=== PATIENT | female | born 1995 | race Caucasian/White ===

== ENCOUNTER 2018-06-10 07:15 | Day surgery (SDC) | payer MEDICAID ==
[2018-06-09 11:20] LABS: BASOPHILS 0.4 % (0-2); EOSINOPHILS 1.8 % (0-7); HEMATOCRIT 44.6 % (36.0-48.0); HEMOGLOBIN 15.2 g/dL (12-16); IMMATURE GRANULOCYTES 0.3 % (0-5); LYMPHOCYTES 27.4 % (15-50); MCH 29.4 pg (26.0-34.0); MCHC 34.1 g/dL (31.0-37.0); MCV 86.3 fL (80.0-100.0); MONOCYTES 7.9 % (2-11); NEUTROPHILS 62.2 % (40-80); PLATELET COUNT 215 10x3/uL (130-400); RBC 5.17 10x6/uL (4.00-5.40); RDW 13.6 % (11.5-14.5); WBC 7.2 10x3/uL (4.8-10.8)
[~2018-06-10] VITALS: Ht 170.2 cm; Wt 151.0 kg
--- NOTE | ~2018-06-10 | OP ---
PATIENT NAME: GAGE AWAD MEDICAL RECORD: [id number] :89 LOCATION:[facility] ADMISSION DATE: SURGEON: JONATHON LIRIANO MD DATE OF OPERATION: 06/10/2018 PREOPERATIVE DIAGNOSIS: Undesired fertility. POSTOPERATIVE DIAGNOSIS: Undesired fertility. PROCEDURES: 1. Diagnostic laparoscopy. 2. Bilateral tubal occlusion using Falope Rings. SURGEON: Jonathon Liriano MD PACKAGE DESIGNER: Jon Rodríguez ANESTHESIOLOGIST: Dennis Wolf MD ANESTHETIC: General anesthetic with endotracheal intubation. FINDINGS: Uterus is slightly enlarged, otherwise unremarkable. Both tubes were unremarkable. Right ovary is unremarkable. Left ovary with multiple follicles. SPECIMEN REMOVED: None. ESTIMATED BLOOD LOSS: Minimal. FLUIDS: 600 cc lactated Ringer's. URINE OUTPUT: Quantity sufficient void prior to this procedure. COMPLICATIONS: None. DRAINS: None. INDICATION: The patient is a 22-year-old female with undesired fertility. The patient has been counseled and understands the alternatives to this procedure. The patient understands the possibility of failure of 1 in 100 with an increased chance of an ectopic gestation if was to occur. DESCRIPTION OF PROCEDURE: Informed consents assured, the patient was taken to the operating room where anesthetic was obtained without difficulty. The patient is now prepped and draped and an incision was made at the umbilicus to accommodate a 5-mm trocar. The pneumoperitoneum was developed and the patient was placed in Trendelenburg position. An incision is now made for the Falope Ring applicator trocar. The trocar is now inserted. The uterus is identified and both tubes followed to their fimbriated ends. Silica rings are now placed on a knuckle developed on the isthmic portion of both right and left tubes. Marcaine was placed directly over both occlusion sites. Left ovary and right ovary are inspected with the above findings. Sponge, lap, and needle counts were correct times 2. The accessory trocar was removed. The pneumoperitoneum was released and then the skin closed with subcuticular stitch. Sterile dressing is applied. The patient went to the recovery room in stable condition. 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
[2018-06-10 08:16] VITALS: BP 172/95; Ht 170.2 cm; Wt 151.0 kg
== END 2018-06-10 13:50 | disposition home or self-care (01) ==
LOC: D.OPS 07:15 → D.PAN 07:30 → D.OPS 07:30
PROVIDERS: Obstetrics & Gynecology
DX: Z30.2 Encounter for sterilization (principal); Z30.09 Encounter for other general counseling and advice on contraception; I10 Essential (primary) hypertension; Z72.0 Tobacco use

== ENCOUNTER 2019-06-23 16:44 | Emergency (ER) | payer SELFPAY ==
[~2019-06-23] VITALS: Ht 170.2 cm; Wt 115.0 kg
[2019-06-23 16:51] VITALS: BP 155/108; Ht 170.2 cm; Wt 115.0 kg
[2019-06-23] MEDS ORDERED: STERAPRED DS 1010 MG PO (18:59)
[2019-06-23] MEDS ORDERED: AMOXICILLIN500 M1 PO (18:59)
== END 2019-06-23 19:40 | disposition home or self-care (01) ==
LOC: D.ER 16:44
DX: J02.0 Streptococcal pharyngitis (principal)

== ENCOUNTER 2021-04-25 21:06 | Emergency (ER) | payer MEDICAID ==
[~2021-04-25] VITALS: Ht 170.2 cm; Wt 93.2 kg
[~2021-04-25 21:06] MED LIST: AMOXICILLIN500 M1 PO; STERAPRED DS 1010 MG PO
[2021-04-25 21:13] VITALS: Ht 170.2 cm; Wt 93.2 kg
[2021-04-25 22:56] LABS: BILIRUBIN NEGATIVE (NEGATIVE); KETONE NEGATIVE (NEGATIVE); NITRITE NEGATIVE (NEGATIVE); UROBILINOGEN NORMAL mg/dL (< 2)
[2021-04-25 22:59] LABS: BACTERIA MODERATE HPF (NONE SEEN); SQUAMOUS EPITHELIAL 0-5 HPF (0-4); WHITE CELLS - URINE 0-5 HPF (0-4)
[2021-04-25 23:01] LABS: HCG URINE NEGATIVE (NEGATIVE)
[2021-04-25 23:39] LABS: BASOPHILS 0.6 % (0-2); EOSINOPHILS 1.8 % (0-7); HEMOGLOBIN 13.8 g/dL (12-16); LYMPHOCYTES 22.8 % (15-50); MCH 26.6 pg (26.0-34.0); MCHC 32.8 g/dL (31.0-37.0); MEAN PLATELET VOLUME 8.5 fL (7.4-10.4); NEUTROPHILS 62.8 % (40-80); RBC 5.19 10x6/uL (4.00-5.40); RDW 16.1 % (11.5-14.5); WBC 5.9 10x3/uL (4.8-10.8)
[2021-04-25 23:40] LABS: PLATELET COUNT 298 10x3/uL (130-400)
[2021-04-25 23:44] LABS: ANION GAP 12.8 mmol/L (8-16); CALCIUM 8.6 mg/dL (8.5-10.1); CARBON DIOXIDE 28.6 mmol/L (21.0-32.0); POTASSIUM - SERUM 3.4 mmol/L (3.5-5.1)
[2021-04-25 23:50] LABS: ALBUMIN 3.8 g/dL (3.4-5.0); BILIRUBIN - TOTAL 0.25 mg/dL (0.2-1.3); C-REACTIVE PROTEIN 0.3 mg/dL (0.0-0.9); PROTEIN - SERUM 7.8 g/dL (6.4-8.2)
[2021-04-26] MEDS ORDERED: BACTRIM DS TAB1 EAC1 PO (01:12)
[2021-04-26] MEDS ORDERED: CLEOCIN HCL300 MG PO (01:16)
[2021-04-26 01:17] VITALS: BP 149/99
== END 2021-04-26 01:15 | disposition home or self-care (01) ==
LOC: D.ER 21:06
PROVIDERS: Emergency Medicine
DX: R10.2 Pelvic and perineal pain (principal); N39.0 Urinary tract infection, site not specified; I10 Essential (primary) hypertension; Z72.0 Tobacco use